=== PATIENT | female | born 1995 | race Caucasian/White ===

== ENCOUNTER 2019-02-25 16:42 | Emergency (ER) | payer MEDICAID, SELFPAY ==
[2019-02-25 16:43] VITALS: BP 114/78; PULSE 72; RESP 16; TEMP 36.2; O2SAT 99; BMI 25.0
--- NOTE | 2019-02-25 16:53 | US_ITS ---
STUDY: SECOND AND THIRD TRIMESTER OBSTETRICAL ULTRASOUND - LIMITED REASON FOR EXAM: Female, 23 years old moderate bleeding. LMP: 11/12/2018 PRIOR ULTRASOUND: None. TECHNIQUE: TECHNICAL QUALITY: Adequate. FINDINGS: There is a single intrauterine fetus. The fetus is in a variable presentation. There is demonstrated cardiac activity with a heart rate of 160 bpm. There is a normal amniotic fluid volume. The largest amniotic fluid pocket measures 4.5 cm. The placenta is posterior in location and is not low lying. There are Grade 0 placental changes. The cervix measures 3.1 cm in length. BIOMETRY: BPD: 3.0: 15 weeks, 3 days HC: 11.1: 15 weeks, 3 days AC: 9.6: 15 weeks, 5 days FL: 1.5: 14 weeks, 4 days Age by LMP: 15 weeks, 0 days. MARY by LMP: 08/19/2019. age by prior US: weeks, days. MARY by prior US: . age by current US: 15 weeks, 2 days. MARY by current US: 08/17/2019. US/OB Limited With Biometrics IMPRESSION: Single live fetus in a variable presentation. survey not performed on this exam. Placenta is grade 0 and is not low-lying. Cervix is closed. age by current US: 15 weeks, 2 days. MARY by current US: 08/17/2019. Electronically Signed: Bernardo Linn MD at 18:01 EDT , Service support ,
--- NOTE | 2019-02-25 16:54 | ED.VIS.GEN ---
History of Present Illness Chief Complaint: Vag Bld, Preg Informant: Patient Onset: Weeks Current Severity: Mild Maximum Severity: Moderate Narrative: Patient is currently 15 weeks . She reports vaginal bleeding for the last 1 week. She initially had heavy bleeding followed by a week of spotting. Today bleeding has been heavier again. She does report some abdominal cramping. She did see her DIRECTOR OF HEALTH CARE MARKETING after last week's onset of bleeding. She states they checked heart tones and said everything looked okay. Her blood type is noted to be O+. 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 Past Medical History - Allergies and Home Meds Allergies/Adverse Reactions: Allergies No Known Allergies Allergy (Verified 02/25/19 16:43) Primary Care Physician: Melony Adam NP-C [Primary Care Provider] - Prior records reviewed: Yes Past Medical History: - - Reviewed Lives: With Family Review of Systems General: Denies: Chills, Fever Eyes: Denies: Visual changes - bilaterally ENT: Denies: Bilateral ear pain Cardiovascular: Denies: Chest pain Respiratory: Denies: Dyspnea Gastrointestinal: Reports: Abdominal pain. Denies: Nausea, Vomiting Genitourinary: Reports: - - Vaginal bleeding. Denies: Dysuria Musculoskeletal: Denies: Swelling, Extremity Pain Skin: Denies: Rash Hematologic: Denies: Easy bruising Allergy: Denies: Uticaria Physical Exam Vital Signs/Narrative: Vital Signs Temp Pulse Resp BP Pulse Ox 02/25/19 16:43 97.2 F L 72 16 114/78 99 Inital Vital Signs reviewed: Yes General: Well nourished, Well developed Head: Normocephalic ENT: Moist mucous membranes Neck: Supple Cardiovascular: Regular rate, Regular rhythm Respiratory: No distress, CTA bilaterally Abdomen: Soft, Nontender, Normal bowel sounds Extremities: Nontender Skin: Normal color Neurological: Alert, Oriented x3 Psychological: Normal affect Diagnostic/Tx/Re-eval Impressions Obstetrics Ultrasound 02/25/19 16:53 IMPRESSION: Single live fetus in a variable presentation. survey not performed on this exam. Placenta is grade 0 and is not low-lying. Cervix is closed. age by current US: 15 weeks, 2 days. MARY by current US: 08/17/2019. Electronically Signed: Bernardo Linn MD at 18:01 EDT , Service support , 02/25/19 16:53 OB Limited With Biometrics [US] Stat Laboratory Results 02/25/19 02/25/19 02/25/19 17:09 17:09 17:35 WBC 8.9 RBC 4.06 L Hgb 12.4 Hct 37.9 MCV 93.3 MCH 30.5 MCHC 32.7 RDW Std Deviation 42.8 RDW Coeff of Génesis 12.4 Plt Count 221 MPV 9.5 Immature Gran % (Auto) 0.700 Neut % (Auto) 57.3 Lymph % (Auto) 31.8 Perkins % (Auto) 8.8 Eos % (Auto) 0.9 Baso % (Auto) 0.5 Absolute Neuts (auto) 5.1 Absolute Lymphs (auto) 2.82 Nucleated RBC % 0 HCG, Quant 12053 H Urine Color Yellow Urine Clarity Sl. Cloudy Urine pH 8.0 Ur Specific [place] 1.010 Urine Protein Negative Urine Glucose (UA) Normal Urine Ketones Negative Urine Occult Blood 250 H Urine Nitrite Negative Urine Bilirubin Negative Urine Urobilinogen Normal Ur Leukocyte Esterase Negative Urine RBC 0-5 SEEN Urine WBC 0 SEEN Ur Squamous Epith Cells 0-5 SEEN Urine Bacteria RARE Urine Mucus 0 SEEN - Medical Decision Making Patient was given IV fluids here. Test results are discussed with patient and family at bedside. I spoke with Miladys Hernandez, asset protection manager on-call for [facility] DIRECTOR OF HEALTH CARE MARKETING. She also reviewed the patient's recent and office visit. Patient does not work for the next 2 days and is advised to follow pelvic rest. She has an appoint with her doctor tomorrow. ED Disposition - Plan for ED Patient: Disposition: Home or Assisted Living Diagnosis: Threatened miscarriage Instructions: POSSIBLE MISCARRIAGE (Threatened ) Additional Instructions: Follow-up tomorrow as scheduled.
[2019-02-25 17:14] VITALS: BP 120/70; PULSE 71; RESP 14; O2SAT 97
[2019-02-25 17:21] LABS: Absolute Lymphocyte Count 2.82 X10^3/uL (0.83-4.51); Absolute Neutrophil Count 5.1 X10^3/uL (2.0-7.7); Basophil# 0.04 X10^3/uL; Basophil% 0.5 % (0-1); Eosinophil# 0.08 X10^3/uL; Eosinophils% 0.9 % (0-5); Hematocrit 37.9 % (37-47); Hemoglobin 12.4 g/dL (12.0-15.0); Lymphocyte # 2.82 X10^3/ul (4.0); Lymphocyte % 31.8 % (19-41); Mean Corp Hgb Conc 32.7 g/dL (32-36); Mean Corpuscular Hgb 30.5 pg (27.0-32.0); Mean Corpuscular Volume 93.3 fL (81-99); Mean Platelet Vol. 9.5 fl (6.2-12.0); Monocyte# 0.78 X10^3/uL; Monocyte% 8.8 % (0-10); NRBC Flagged by Analyzer 0 % (0-5); Neutrophil # 5.08 X10^3/uL (2.7-7.7); Neutrophil % 57.3 % (47-70); Platelet Count 221 K/mm3 (150-450); RBC Distribution Width CV 12.4 % (11.6-14.6); RBC Distribution Width SD 42.8 fl (35.1-43.9); Red Blood Count 4.06 M/mm3 (4.2-5.4); White Blood Count 8.9 K/mm3 (4.4-11.0)
[2019-02-25 17:44] LABS: Mucous, Urine 0 SEEN /hpf (<or=2+); White Blood Cells 0 SEEN /hpf (0-5)
[2019-02-25 17:48] LABS: Color, Urine Yellow (Yellow); Glucose, Dipstick Normal (Normal); Ketone-Dipstick Negative (Negative); Leukocyte Esterase-Dipstick Negative /ul (Negative); Nitrite-Dipstick Negative (Negative); Occult Blood-Urine 250 /ul (Negative); Protein-Dipstick Negative (Negative); Urine Bilirubin Dipstick Negative (Negative); Urine Clarity Sl. Cloudy (Clear); Urine Urobilinogen Normal (Normal)
[2019-02-25 17:59] LABS: Bacteria RARE /hpf (None Seen); Red Blood Cells-Urine 0-5 SEEN /hpf (0-5); Squamous Epithelial Cells - UA 0-5 SEEN /hpf (5-10)
[2019-02-25 18:28] VITALS: BP 110/59; PULSE 64; RESP 15; O2SAT 97
== END 2019-02-25 18:29 | disposition home or self-care (01) ==
PROVIDERS: Emergency Provider Emergency Medicine; Family Provider Nurse Practitioner Family; PCP Nurse Practitioner Family
DX: O20.0 Threatened abortion (principal); Z3A.15 15 weeks gestation of pregnancy
CPT/HCPCS: 76816; 81001; 84702; 85025; 99283; A4216

== ENCOUNTER 2019-05-22 07:55 | Outpatient (CLI) | payer MEDICAID, SELFPAY ==
[2019-05-22 08:12] VITALS: BMI 29.5
--- NOTE | 2019-05-23 10:25 | OB.TRI.NOTE ---
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 Nonstress test is reactive. No evidence of labor. Patient was instructed on conservative measures and to follow-up in the office today as scheduled
== END 2019-05-22 09:05 | disposition home or self-care (01) ==
LOC: WPOUT 07:57 → OBT 07:58
PROVIDERS: Family Provider Nurse Practitioner Family; PCP Nurse Practitioner Family; Referring Provider Obstetrics & Gynecology; Visit Provider Obstetrics & Gynecology
DX: O26.892 Other specified pregnancy related conditions, second trimester (principal); R10.9 Unspecified abdominal pain; Z3A.27 27 weeks gestation of pregnancy
CPT/HCPCS: 59025; 59050; 99218; G0378

== ENCOUNTER 2019-08-23 11:40 | Inpatient (IN) | payer MEDICAID, SELFPAY ==
[2019-08-23] VITALS (47 sets, daily range): BP systolic 96–140; BP diastolic 55–91; PULSE 56–103; RESP 16; TEMP 36.3–37.7; O2SAT 82–100; BMI 32.9
[2019-08-23] MEDS: Lactated Ringers 1,000 ML 200 ML IV ×2 (12:05→17:21)
[2019-08-23] MEDS: Lactated Ringers 500 ML 999 ML IV ×3 (12:10→19:24)
[2019-08-23 12:26] LABS: Absolute Neutrophil Count 10.5 X10^3/uL (2.0-7.7); Basophil# 0.07 X10^3/uL; Basophil% 0.4 % (0-1); Eosinophil# 0.05 X10^3/uL; Eosinophils% 0.3 % (0-5); Hematocrit 36.9 % (37-47); Hemoglobin 11.1 g/dL (12.0-15.0); Lymphocyte % 20.1 % (19-41); Mean Corp Hgb Conc 30.1 g/dL (32-36); Mean Corpuscular Hgb 25.8 pg (27.0-32.0); Mean Corpuscular Volume 85.8 fL (81-99); Mean Platelet Vol. 9.7 fl (6.2-12.0); Monocyte# 1.54 X10^3/uL; Monocyte% 9.7 % (0-10); NRBC Flagged by Analyzer 0 % (0-5); Neutrophil # 10.47 X10^3/uL (2.7-7.7); Neutrophil % 65.6 % (47-70); POSITIVE DIFFERENTIAL YES; Platelet Count 337 K/mm3 (150-450); RBC Distribution Width CV 14.3 % (11.6-14.6); RBC Distribution Width SD 44.2 fl (35.1-43.9)
[2019-08-23 12:27] LABS: Differential Indicated SCAN CRITERIA MET
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
[2019-08-23 12:50] LABS: Differential Comment SCANNED
[2019-08-23] MEDS: fentaNYL-bupivacaine (epidural) 100 ML BAG EPIDURAL ×2 (13:37→17:43)
--- NOTE | 2019-08-23 13:56 | PCM.PN.BLA ---
Progress Note S/p epidural and comfortable. Cvx 6.5/90/0. AROM performed for clear fluid. Category 1 tracing. Continue current management. STROKE Vital Signs/Narrative: Vital Signs Temp Pulse BP Pulse Ox 08/23/19 13:54 84 91 08/23/19 13:53 81 124/74 H 08/23/19 13:51 90 100 08/23/19 13:48 81 117/68 82 08/23/19 13:46 89 100 08/23/19 13:43 77 127/83 H 91 08/23/19 13:41 82 100 08/23/19 13:38 98.1 F 92 122/81 H 08/23/19 13:36 84 100 08/23/19 13:33 85 124/81 H 08/23/19 13:31 100 99 08/23/19 13:30 93 123/81 H 08/23/19 13:29 94 08/23/19 13:26 78 95 08/23/19 13:23 84 135/76 H 08/23/19 13:21 80 98 08/23/19 13:18 84 137/76 H 84 08/23/19 13:16 81 100 08/23/19 13:14 81 138/71 H 08/23/19 13:11 84 100 08/23/19 13:09 79 133/86 H 08/23/19 13:06 81 99 08/23/19 12:08 99.8 F H 67 140/90 H 97
[2019-08-23] MEDS: Oxytocin 30 units/NS 500 ml 30 UNITS/500 ML IV.SOLN IV (17:29)
--- NOTE | 2019-08-23 20:22 | PCM.PN.BLA ---
Progress Note At bedside to assess patient. Cvx 6.5/90/+1, significant caput so unable to assess position of baby. Pitocin drip was started earlier for augmentation, but then stopped due to a prolonged heart rate deceleration. Ctx's currently q 1-2 min. Cervix has remained unchanged at 6.5 centimeters dilated for 6 hours. Recommended section. Discussed risk, benefits, alternatives with patient and she desires to proceed with section. STROKE Vital Signs/Narrative: Vital Signs Temp Pulse BP Pulse Ox 08/23/19 20:13 97.3 F L 99 08/23/19 20:12 77 115/84 H 08/23/19 19:08 97.3 F L 71 123/91 H 98 08/23/19 18:23 60 115/70 08/23/19 17:31 98.2 F 56 L 96/56 L 08/23/19 16:42 74 111/73 100
[2019-08-23] MEDS: Sodium Citrate/Citric Acid 30 ML UDC PO (20:43)
[2019-08-23] MEDS: Cefazolin 2 GM in 0.9% Normal Saline 100 ML IV (21:15)
--- NOTE | 2019-08-23 22:10 | NURSING ---
epidural cath d/c per
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
[2019-08-23] MEDS: Oxytocin 30 units/NS 500 ml 30 UNITS/500 ML IV.SOLN 167 UNITS IV (22:30)
[2019-08-23] MEDS: 0.9% Saline Lock 10 ML Syringe IV (22:35)
[2019-08-24] VITALS (14 sets, daily range): BP systolic 101–121; BP diastolic 55–84; PULSE 67–96; RESP 16–18; TEMP 36.7–38.4; O2SAT 96–100
[2019-08-24] MEDS: Acetaminophen 500 MG Tablet 1000 MG PO ×2 (00:44→18:26)
[2019-08-24] MEDS: Lactated Ringers 1,000 ML 100 ML IV (01:38)
[2019-08-24] MEDS: Ketorolac 30 MG/ML Syringe IV ×4 (04:04→22:38)
[2019-08-24] MEDS: Levothyroxine 25 MCG TABLET PO (05:42)
[2019-08-24 05:54] LABS: Hematocrit 28.7 % (37-47); Mean Corp Hgb Conc 31.4 g/dL (32-36); Mean Corpuscular Volume 86.2 fL (81-99); Platelet Count 207 K/mm3 (150-450); RBC Distribution Width CV 14.3 % (11.6-14.6); RBC Distribution Width SD 45.1 fl (35.1-43.9); Red Blood Count 3.33 M/mm3 (4.2-5.4); White Blood Count 14.2 K/mm3 (4.4-11.0)
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
[2019-08-24] MEDS: 0.9% Saline Lock 10 ML Syringe IV ×3 (10:51→22:38)
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
[2019-08-25 02:45] VITALS: BP 107/77; PULSE 74; RESP 16; TEMP 36.9; O2SAT 99
[2019-08-25] MEDS: Ketorolac 30 MG/ML Syringe IV ×4 (04:07→22:34)
[2019-08-25] MEDS: 0.9% Saline Lock 10 ML Syringe IV ×4 (04:08→22:35)
[2019-08-25] MEDS: Levothyroxine 25 MCG TABLET PO (05:27)
[2019-08-25 08:00] VITALS: BP 101/65; PULSE 65; RESP 18; TEMP 36.4; O2SAT 98
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
[2019-08-25 13:00] VITALS: BP 108/72; PULSE 63; RESP 16; TEMP 36.4; O2SAT 96
[2019-08-25] MEDS: Senna/Docusate Sodium 1 Tablet PO (16:34)
[2019-08-25 20:30] VITALS: BP 116/73; PULSE 85; RESP 18; TEMP 36.7; O2SAT 99
[2019-08-26 02:19] VITALS: BP 112/74; PULSE 79; RESP 18; TEMP 37.4; O2SAT 96
[2019-08-26] MEDS: Levothyroxine 25 MCG TABLET PO (06:07)
[2019-08-26] MEDS: Ibuprofen 600 MG Tablet PO (09:06)
[2019-08-26 09:43] VITALS: BP 109/65; PULSE 86; RESP 18; TEMP 37.6; O2SAT 97
[2019-08-26 10:23] LABS: Pathologist Review Reviewed
[2019-08-26] MEDS: Acetaminophen 500 MG Tablet 1000 MG PO (10:56)
--- NOTE | 2019-08-26 11:48 | DCINST_ITS ---
Discharge Diet: No Restrictions Discharge Activity: May not drive while taking narcotic pain medications., May Shower May resume sexual activity in: 6 weeks Weight Bearing Status: Weight bearing as tolerated Call your doctor if your incision/area has: Continuous Slow Oozing, Sudden Increased Bleeding, Increased Pain/ Swelling, Increased Redness, Foul Smelling Discharge, Swelling at the incision site Additional Instructions: If you experience any of the following, contact your healthcare provider. * Bleeding that soaks a pad every hour for 2 hours * Fever 100.4 or higher * Unrelieved incision or abdominal pain * Swelling, redness, discharge or bleeding from your incision or episiotomy site * Your incision begins to separate * Problems urinating (including inability to urinate or burning while urinating). * Visual changes * Severe headache * Flu-like symptoms * Pain or redness in one of both of your breasts * Pain, warmth, tenderness or swelling in your legs, especially the calf area * Frequent nausea and vomiting * Symptoms of depression or anxiety If you experience any of the following, call 911 or go to the nearest Emergency Room. * Chest pain * Problems breathing * Seizure activity * Partial or complete paralysis of a body part, slurred speech, weakness or drooping of the face, or a sudden inability to walk or hold your balance Allergies/Adverse Reactions: Allergies No Known Allergies Allergy (Verified 05/22/19 08:12) Medications to take at Discharge Famotidine [Pepcid] 20 mg PO DAILY 05/22/19 Levothyroxine [Synthroid] 25 mcg PO DAILY 05/22/19 Vit No.130/Iron/Folic [ Tablet] 1 ea PO DAILY 05/22/19 Acetaminophen [Tylenol] 1,000 mg PO Q8H PRN PRN tablet 08/26/19 Docusate Sodium [Colace] 100 mg PO BID PRN PRN #60 cap 08/26/19 Ferrous Sulfate [Slow Release Iron] 140 mg PO DAILY #30 tablet.er 08/26/19 Ibuprofen [Motrin] 600 mg PO Q6H PRN PRN tablet 08/26/19 Oxycodone [Oxyir] 5 - 10 mg PO Q6H PRN PRN 3 Days #12 tab 08/26/19 The following prescriptions were given: Docusate Sodium [Colace] 100 mg PO BID PRN PRN #60 cap PRN Reason: Constipation Transmission Status: Pending to [id number] Oxycodone [Oxyir] 5 - 10 mg PO Q6H PRN PRN 3 Days #12 tab PRN Reason: Pain Score 4-10/10 Transmission Status: Received by [id number] Ferrous Sulfate [Slow Release Iron] 140 mg PO DAILY #30 tablet.er Transmission Status: Pending to [id number] Follow-Up: Call to make an appointment with your doctor for an incision check in 1-2 weeks. You will also need a 6 week post- follow up appointment. Test results from this visit will be discussed in further detail at your follow- up appointment, if applicable.
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
[2019-08-26 13:35] VITALS: BP 113/77; PULSE 101; RESP 18; TEMP 36.7; O2SAT 98
== END 2019-08-26 13:35 | disposition home or self-care (01) | DRG 540 ==
PROVIDERS: Admitting Provider Obstetrics & Gynecology; Referring Provider Obstetrics & Gynecology; Visit Provider Obstetrics & Gynecology
DX: O99.284 Endocrine, nutritional and metabolic diseases complicating childbirth (principal); E03.9 Hypothyroidism, unspecified; O62.2 Other uterine inertia; O76 Abnormality in fetal heart rate and rhythm complicating labor and delivery; K21.9 Gastro-esophageal reflux disease without esophagitis; Z87.891 Personal history of nicotine dependence; Z3A.40 40 weeks gestation of pregnancy; Z37.0 Single live birth
CPT/HCPCS: 59025; 59050; 85025; 85027; 86850; 86900; 86901; 99218; J7120; A4216; G0378